=== PATIENT | female | born 1990 | race Caucasian/White ===

== ENCOUNTER 2017-12-27 23:27 | Emergency (ER) | payer SELFPAY ==
[~2017-12-27] VITALS: Ht 167.6 cm; Wt 68.2 kg
[2017-12-27 23:30] VITALS: Ht 167.6 cm; Wt 68.2 kg
[2017-12-27] MEDS ORDERED: EFFEXOR25 MG (23:41)
[2017-12-27 23:58] LABS: HEMATOCRIT 40.3 % (36.0-48.0); HEMOGLOBIN 14.4 g/dL (12-16); LYMPHOCYTES 7.8 % (15-50); MCH 33.3 pg (26.0-34.0); MCHC 35.7 g/dL (31.0-37.0); MCV 93.1 fL (80.0-100.0); MEAN PLATELET VOLUME 10.7 fL (7.4-10.4); NEUTROPHILS 84.5 % (40-80); PLATELET COUNT 237 10x3/uL (130-400); RBC 4.33 10x6/uL (4.00-5.40); RDW 11.8 % (11.5-14.5); WBC 14.5 10x3/uL (4.8-10.8)
[2017-12-28 00:04] LABS: HCG SERUM NEGATIVE (NEGATIVE)
[2017-12-28 00:08] LABS: ALBUMIN 4.4 g/dL (3.4-5.0); ANION GAP 17.2 mmol/L (8-16); BILIRUBIN - TOTAL 1.16 mg/dL (0.2-1.3); CALCIUM 9.5 mg/dL (8.5-10.1); CARBON DIOXIDE 24.2 mmol/L (21.0-32.0); CREATININE - SERUM 1.3 mg/dL (0.6-1.3); POTASSIUM - SERUM 3.4 mmol/L (3.5-5.1); PROTEIN - SERUM 8.3 g/dL (6.4-8.2)
[2017-12-28 01:54] LABS: UDS - AMPHET POSITIVE QUAL (NEGATIVE); UDS - BARB NEGATIVE QUAL (NEGATIVE); UDS - BENZO NEGATIVE QUAL (NEGATIVE); UDS - COCAINE NEGATIVE QUAL (NEGATIVE); UDS - OPIATE NEGATIVE QUAL (NEGATIVE); UDS - PCP NEGATIVE QUAL (NEGATIVE); UDS - THC POSITIVE QUAL (NEGATIVE)
[2017-12-28 01:56] LABS: APPEARANCE HAZY (CLEAR); COLOR DK YELLOW (YELLOW); GLUCOSE NEGATIVE (NEGATIVE); NITRITE NEGATIVE (NEGATIVE); PROTEIN TRACE mg/dL (NEGATIVE); SPECIFIC GRAVITY 1.025 (1.005-1.020)
[2017-12-28 01:57] LABS: BILIRUBIN NEGATIVE (NEGATIVE); KETONE MODERATE mg/dL (NEGATIVE); UROBILINOGEN NORMAL (NORMAL)
[2017-12-28 01:58] LABS: EPITHELIAL CELLS 0-5 /hpf (0-5); RED CELLS - URINE 0-5 /hpf (0-5); WHITE CELLS - URINE 0-5 /hpf (0-5)
[2017-12-28 01:59] LABS: BACTERIA FEW /hpf (NONE SEEN); HYALINE CAST 0-5 /lpf (NONE SEEN)
[2017-12-28 02:19] VITALS: BP 122/74
== END 2017-12-28 02:20 | disposition home or self-care (01) ==
LOC: D.ER 23:27
PROVIDERS: Family Medicine
DX: F30.9 Manic episode, unspecified (principal)

== ENCOUNTER 2017-12-28 03:06 | Emergency (ER) | payer SELFPAY ==
[~2017-12-28] VITALS: Ht 167.6 cm; Wt 68.2 kg
[~2017-12-28 03:06] MED LIST: EFFEXOR25 MG
[2017-12-28 03:23] VITALS: Ht 167.6 cm; Wt 68.2 kg
[2017-12-28 03:54] LABS: BASOPHILS 0.2 % (0-2); EOSINOPHILS 0.1 % (0-7); HEMATOCRIT 41.7 % (36.0-48.0); IMMATURE GRANULOCYTES 0.3 % (0-5); LYMPHOCYTES 9.8 % (15-50); MCH 33.9 pg (26.0-34.0); MCV 94.1 fL (80.0-100.0); MEAN PLATELET VOLUME 11.4 fL (7.4-10.4); MONOCYTES 7.2 % (2-11); NEUTROPHILS 82.4 % (40-80); PLATELET COUNT 259 10x3/uL (130-400); RBC 4.43 10x6/uL (4.00-5.40); RDW 11.8 % (11.5-14.5); WBC 15.1 10x3/uL (4.8-10.8)
[2017-12-28 04:06] LABS: ALBUMIN 4.6 g/dL (3.4-5.0); ALKALINE PHOSPHATASE 67 U/L (46-116); ALT (SGPT) 49 U/L (10-68); BILIRUBIN - TOTAL 1.32 mg/dL (0.2-1.3); CALCIUM 9.9 mg/dL (8.5-10.1); CARBON DIOXIDE 20.5 mmol/L (21.0-32.0); CHLORIDE - SERUM 98 mmol/L (98-107); CREATININE - SERUM 1.4 mg/dL (0.6-1.3); GLUCOSE 91 mg/dL (74-106); POTASSIUM - SERUM 3.2 mmol/L (3.5-5.1); PROTEIN - SERUM 8.6 g/dL (6.4-8.2); SODIUM 137 mmol/L (136-145); eGFR NON AFRICAN AMERICAN 47 mL/min (90-120)
[2017-12-28 04:07] LABS: CALC OSMOLALITY 275 mosm/kg (275-300); UREA NITROGEN 18 mg/dL (7-18)
[2017-12-28 04:21] LABS: CKMB 10.9 U/L (0.0-3.6)
[2017-12-28 04:23] LABS: CREATINE KINASE 904 UL (21-215); TROPONIN-I < 0.017 ng/mL (0.000-0.060)
[2017-12-28 07:00] VITALS: BP 132/79
== END 2017-12-28 08:10 | disposition home or self-care (01) ==
LOC: D.ER 03:06
PROVIDERS: Family Medicine
DX: F19.10 Other psychoactive substance abuse, uncomplicated (principal); E87.6 Hypokalemia; M62.82 Rhabdomyolysis